=== PATIENT | female | born 1940 | race Caucasian/White ===

== ENCOUNTER 2016-09-06 12:02 | Outpatient (CLI) | payer MEDICARE, OTHER ==
[2016-09-06 12:31] LABS: BASOPHILS % 0.3 (0.0-1.5); EOSINOPHILS % 1.4 % (0.0-6.8); LYMPHOCYTES # 1.6 # k/uL (0.6-4.0); MEAN CORPUSCULAR HEMOGLOBIN 31.2 pg (28.0-34.0); MONOCYTES # 0.4 # k/uL (0.0-0.9); MONOCYTES % 5.7 % (0.0-11.0); NEUTROPHILS # 4.2 # k/uL (1.4-7.7)
[2016-09-06 13:01] LABS: eGFR (African) > 60; eGFR (Non-African) > 60
[2016-09-06 21:15] LABS: VITAMIN D, 25-HYDROXY 55 ng/mL (30-100)
== END 2016-09-06 12:03 ==
LOC: LAB 12:02
PROVIDERS: ATTEND Family Medicine
DX: R53.83 Other fatigue (principal); E55.9 Vitamin D deficiency, unspecified
CPT/HCPCS: 36415; 80053; 82306; 82607; 84443; 85025

== ENCOUNTER 2016-11-01 09:46 | Day surgery (SDC) | payer MEDICARE, OTHER ==
--- NOTE | 2016-11-01 12:49 | GI Report ---
REFERRING PHYSICIAN: Dr. Rainer Vazquez WEIGHT CONTROL ENGINEER: Jaiden Urena MD PROCEDURE MEDICATION: Propofol as per anesthesia. INDICATIONS: A 75-year-old woman is referred for a screening. She denies any changes in her stools or blood in the stool. PROCEDURE PERFORMED: Colonoscopy with polypectomy. PROCEDURE: An Olympus video colonoscope was advanced to the rectum. She does have extensive diverticular disease of the sigmoid and descending colon. A very atonic redundant colon. It took some maneuvering to reach the cecum. The appendiceal orifice and terminal ileum were normal. Ascending colon with no obvious intraluminal lesions noted. In the proximal ascending colon near the hepatic flexure, patient had 2 small polyps removed with a cold snare varying from about 3 to 4 mm in size. The main part of the transverse colon is normal. Descending colon and sigmoid with redundancy and extensive diverticular disease. No obvious diverticulitis. Retroflexion of the rectum was normal. Patient tolerated the procedure well. FINDINGS: 1. Two polyps in the proximal ascending colon near the hepatic flexure removed. 2. Moderate to severe diverticular disease of the sigmoid and descending colon. RECOMMENDATIONS: 1. A high-fiber diet. 2. Consider re-looking at her colon in 5 years pending the pathology of the polyps. 3. Follow up with Dr. Vazquez. cc: Dr. Rainer RIVERA
== END 2016-11-01 09:47 ==
LOC: OPSURG 09:46
PROVIDERS: ATTEND Internal Medicine Gastroenterology
DX: Z12.11 Encounter for screening for malignant neoplasm of colon (principal); K63.5 Polyp of colon; K57.30 Diverticulosis of large intestine without perforation or abscess without bleeding
CPT/HCPCS: 45385; 88305; J2704; J7120; S1016

== ENCOUNTER 2017-01-18 14:23 | Outpatient (CLI) | payer MEDICARE, OTHER | END 2017-01-18 14:24 | LOC: POD 14:23 | PROVIDERS: ATTEND Podiatrist | DX: I87.323 Chronic venous hypertension (idiopathic) with inflammation of bilateral lower extremity (principal); B35.1 Tinea unguium | CPT/HCPCS: G0463 ==

== ENCOUNTER 2017-05-10 14:24 | Outpatient (CLI) | payer MEDICARE, OTHER | END 2017-05-10 14:25 | LOC: POD 14:24 | PROVIDERS: ATTEND Podiatrist | DX: I87.323 Chronic venous hypertension (idiopathic) with inflammation of bilateral lower extremity (principal); B35.1 Tinea unguium; M79.674 Pain in right toe(s); M79.675 Pain in left toe(s) | CPT/HCPCS: 11721; G0463 ==

== ENCOUNTER 2017-07-14 09:43 | Outpatient (CLI) | payer MEDICARE, OTHER | END 2017-07-14 09:44 | LOC: OUT 09:43 | PROVIDERS: ATTEND Colon & Rectal Surgery | DX: K40.90 Unilateral inguinal hernia, without obstruction or gangrene, not specified as recurrent (principal) | CPT/HCPCS: G0463 ==

== ENCOUNTER 2017-08-09 12:46 | Outpatient (CLI) | payer MEDICARE, OTHER | END 2017-08-09 12:47 | LOC: POD 12:46 | PROVIDERS: ATTEND Podiatrist | DX: I87.323 Chronic venous hypertension (idiopathic) with inflammation of bilateral lower extremity (principal); B35.1 Tinea unguium; M79.674 Pain in right toe(s); M79.675 Pain in left toe(s) | CPT/HCPCS: 11721; G0463 ==

== ENCOUNTER 2017-08-11 07:03 | Day surgery (SDC) | payer MEDICARE, OTHER ==
[2017-08-11] MEDS ORDERED: 0.9 % SODIUM CHLORIDE 1,000 ML IV ONE (07:11)
--- NOTE | 2017-08-12 15:01 | Operative Note ---
SURGEON: Leeroy De MD ANESTHESIA: General anesthesia. ESTIMATED BLOOD LOSS: Minimal. COMPLICATIONS: None. FINDINGS: Direct hernia. PREOPERATIVE DIAGNOSIS: Right inguinal hernia. POSTOPERATIVE DIAGNOSIS: Right inguinal hernia. PROCEDURE PERFORMED: Repair of right inguinal hernia with mesh. INDICATIONS FOR PROCEDURE: This is a 76-year-old woman with a symptomatic right inguinal hernia who presents for repair. DESCRIPTION OF PROCEDURE: Patient was brought to the operating room. General anesthesia was achieved. The right groin was prepped and draped. An oblique incision was made and carried to the subcutaneous tissue. The external oblique fascia was divided. She had a direct hernia. The round ligament was divided and ligated proximally and distally. The inguinal floor was repaired with Marlex mesh. It was sewn to the pubic tubercle medially and along the shelving edge of the inguinal ligament inferiorly and the transversalis superiorly. It completely covered the inguinal floor. The wound was irrigated and suctioned. There was no bleeding. The external oblique fascia was closed with a running 2-0 Vicryl suture, subcutaneous tissues with 3-0 Vicryl, and the skin with 4-0 Vicryl. Steri-Strips and a dressing were placed over the incision. The patient was awakened, extubated in the operating room and taken to the recovery room in good condition. cc: Dr. Rainer RIVERA
== END 2017-08-11 07:04 ==
LOC: OPSURG 07:03
PROVIDERS: ATTEND Colon & Rectal Surgery
DX: K40.90 Unilateral inguinal hernia, without obstruction or gangrene, not specified as recurrent (principal)
CPT/HCPCS: 49650; 93005; J0131; J1100; J2405; J2704; J3010; J7120; C1781; S1016

== ENCOUNTER 2017-08-25 09:24 | Outpatient (CLI) | payer MEDICARE, OTHER | END 2017-08-25 09:25 | LOC: OUT 09:24 | PROVIDERS: ATTEND Colon & Rectal Surgery | DX: Z48.89 Encounter for other specified surgical aftercare (principal) | CPT/HCPCS: G0463 ==

== ENCOUNTER 2017-11-11 13:15 | Outpatient (CLI) | payer OTHER | END 2017-11-11 13:20 | LOC: POD 13:15 | PROVIDERS: ATTEND Podiatrist | DX: I87.323 Chronic venous hypertension (idiopathic) with inflammation of bilateral lower extremity (principal); B35.1 Tinea unguium; M79.674 Pain in right toe(s); M79.675 Pain in left toe(s) | CPT/HCPCS: 11721; G0463 ==